=== PATIENT | male | born 1955 | race American Indian/Alaskan Native ===

== ENCOUNTER 2019-06-30 07:56 | Emergency (ER) | payer MEDICARE ==
--- NOTE | 2019-06-30 08:57 | Emergency Department Report ---
ED General Adult HPI - General Chief complaint: Dizziness Stated complaint: HBP Time Seen by Provider: 06/30/19 08:42 Source: patient Mode of arrival: Ambulatory Limitations: No Limitations - History of Present Illness Initial comments: This is a 63-year-old man that is concerned about his blood pressure. He states he is seen Dr. Flako Harvey recently and is compliant with his lisinopril. Despite this, he states that his blood pressures been adequately controlled. He occasionally feels "swimmy headed" and has a slight headache. He states he has had more severe headaches with uncontrolled hypertension before but these have been much milder. He denies vertigo. He denies difficulty with speech or walking. He denies any focal weakness or numbness. He denies chest pain or shortness of breath. -: Gradual, days(s), week(s) Location: head Quality: aching Consistency: intermittent, now resolved Improves with: none Worsens with: none Associated Symptoms: denies other symptoms Treatments Prior to Arrival: none - Related Data Previous Rx's Medication Instructions Recorded Last Taken Type Lisinopril/Hydrochlorothiazide 1 each PO DAILY #30 tablet 06/30/19 Unknown Rx [Zestoretic 10-12.5 mg Tablet] Allergies Allergy/AdvReac Type Severity Reaction Status Date / Time No Known Allergies Allergy Unverified 06/30/19 08:22 ED Review of Systems ROS: Stated complaint: HBP Other details as noted in HPI Constitutional: denies: chills, fever Eyes: denies: eye pain, eye discharge, vision change ENT: denies: ear pain, throat pain Respiratory: denies: cough, shortness of breath, wheezing Cardiovascular: denies: chest pain, palpitations Endocrine: no symptoms reported Gastrointestinal: denies: abdominal pain, nausea, diarrhea Genitourinary: denies: urgency, dysuria Musculoskeletal: denies: back pain, joint swelling, arthralgia Skin: denies: rash, lesions Neurological: as per HPI, headache. denies: weakness, numbness, paresthesias, confusion, abnormal gait, vertigo Psychiatric: denies: anxiety, depression Hematological/Lymphatic: denies: easy bleeding, easy bruising ED Past Medical Hx - Past Medical History Previous Medical History?: Yes Hx Hypertension: Yes Additional medical history: Gout - Surgical History Past Surgical History?: No - Social History Smoking Status: Never Smoker Substance Use Type: None - Medications Home Medications: Home Medications Medication Instructions Recorded Confirmed Last Taken Type Lisinopril/Hydrochlorothiazide 1 each PO DAILY #30 tablet 06/30/19 Unknown Rx [Zestoretic 10-12.5 mg Tablet] ED Physical Exam - General Limitations: No Limitations General appearance: alert, in no apparent distress - Head Head exam: Present: atraumatic, normocephalic - Eye Eye exam: Present: normal appearance, PERRL, EOMI. Absent: scleral icterus, conjunctival injection, nystagmus - ENT ENT exam: Present: mucous membranes moist - Neck Neck exam: Present: normal inspection. Absent: tenderness, meningismus - Respiratory Respiratory exam: Present: normal lung sounds bilaterally. Absent: respiratory distress - Cardiovascular Cardiovascular Exam: Present: regular rate, normal rhythm. Absent: systolic murmur, diastolic murmur, rubs, gallop - GI/Abdominal GI/Abdominal exam: Present: soft, normal bowel sounds. Absent: distended, tenderness, guarding, rebound, rigid - Rectal Rectal exam: Present: deferred - Extremities Exam Extremities exam: Present: normal inspection, normal capillary refill. Absent: calf tenderness - Back Exam Back exam: Present: normal inspection - Neurological Exam Neurological exam: Present: alert, oriented X3, CN II-XII intact, normal gait, other (NIH stroke score is 0). Absent: motor sensory deficit - Psychiatric Psychiatric exam: Present: normal affect, normal mood - Skin Skin exam: Present: warm, dry, intact, normal color. Absent: rash ED Course Vital Signs 06/30/19 06/30/19 06/30/19 08:21 08:53 09:01 Temperature 98.4 F Pulse Rate 53 L 55 L 48 L Respiratory 18 10 L 9 L Rate Blood Pressure 173/88 149/76 O2 Sat by Pulse 100 100 100 Oximetry 06/30/19 06/30/19 06/30/19 09:15 09:31 09:45 Temperature Pulse Rate 55 L 57 L 52 L Respiratory 10 L 9 L 8 L Rate Blood Pressure 149/76 149/76 123/83 O2 Sat by Pulse 99 100 Oximetry 06/30/19 06/30/19 06/30/19 10:01 10:15 10:36 Temperature Pulse Rate 54 L 56 L Respiratory 12 12 Rate Blood Pressure 123/83 170/65 170/65 O2 Sat by Pulse 99 99 76 L Oximetry - Reevaluation(s) Reevaluation #1: Patient is asymptomatic. He takes lisinopril 10 plan. I am going to place him on lisinopril/HCTZ 02/17.5. 06/30/19 11:02 06/30/19 11:05 Patient had no complaint of headache here ED Medical Decision Making - Lab Data Result diagrams: 06/30/19 09:13 06/30/19 09:13 Laboratory Results - last 24 hr 06/30/19 06/30/19 09:13 09:13 WBC 6.4 RBC 5.10 H Hgb 13.9 Hct 42.6 MCV 84 MCH 27 L MCHC 33 RDW 14.7 Plt Count 276 Lymph % (Auto) 22.5 Swain % (Auto) 5.5 Eos % (Auto) 2.1 Baso % (Auto) 0.6 Lymph # 1.5 Swain # 0.4 Eos # 0.1 Baso # 0.0 Seg Neutrophils % 69.3 Seg Neutrophils # 4.5 Sodium 139 Potassium 4.7 Chloride 104.4 Carbon Dioxide 22 Anion Gap 17 BUN 13 Creatinine 1.1 Estimated GFR > 60 BUN/Creatinine Ratio 12 Glucose 93 Calcium 9.1 Magnesium 2.10 Total Bilirubin 0.30 Direct Bilirubin < 0.2 AST 10 ALT 6 L Alkaline Phosphatase 65 Troponin T < 0.010 Total Protein 7.3 Albumin 3.8 L Albumin/Globulin Ratio 1.1 - EKG Data -: EKG Interpreted by Me Rate: normal - EKG Data Interpretation: nonspecific ST-T wave ronaldo, other (Atrial ectopy wandering pacemaker no acute ischemic changes) Critical care attestation.: If time is entered above; I have spent that time in minutes in the direct care of this critically ill patient, excluding procedure time. ED Disposition Clinical Impression: Poorly-controlled hypertension Cephalalgia Qualifiers: Headache type: unspecified Headache chronicity pattern: acute headache Intractability: not intractable Qualified Code(s): R51 - Headache Disposition: DC-01 TO HOME OR SELFCARE Is pt being admited?: No Does the pt Need Aspirin: No Condition: Stable Instructions: Hypertension (ED), Acute Headache (ED) Additional Instructions: Switch your lisinopril to the new medication. Follow-up with your primary care doctor. Return if you change or problem Prescriptions: Lisinopril/Hydrochlorothiazide [Zestoretic 10-12.5 mg Tablet] 1 each PO DAILY #30 tablet Referrals: Usual, primary care [Other] - 2-3 Days Time of Disposition: 11:03
[2019-06-30 10:27] LABS: Basophils % (Auto) 0.6 % (0.0-1.8); Eosinophils # (Auto) 0.1 K/mm3 (0.0-0.4); Eosinophils % (Auto) 2.1 % (0.0-4.3); Hematocrit 42.6 % (35.5-45.6); Hemoglobin 13.9 gm/dl (11.8-15.2); Lymphocytes # (Auto) 1.5 K/mm3 (1.2-5.4); Lymphocytes % (Auto) 22.5 % (13.4-35.0); Mean Corpuscular HGB Conc 33 % (32-34); Mean Corpuscular Volume 84 fl (84-94); Monocytes # (Auto) 0.4 K/mm3 (0.0-0.8); Monocytes % (Auto) 5.5 % (0.0-7.3); Platelet Count 276 K/mm3 (140-440); Red Cell Distribution Width 14.7 % (13.2-15.2)
[2019-06-30 10:40] VITALS: BP 170/65
[2019-06-30 10:48] LABS: Alanine Aminotransferase 6 units/L (7-56); Albumin 3.8 g/dL (3.9-5); BUN/Creatinine Ratio 12; Blood Urea Nitrogen 13 mg/dL (9-20); Calcium 9.1 mg/dL (8.4-10.2); Hemolysis Index 30
[2019-06-30 10:49] LABS: Bilirubin,Direct < 0.2 mg/dL (0-0.2)
== END 2019-06-30 19:00 | disposition home or self-care (01) ==
LOC: ED 07:56
DX: I10 Essential (primary) hypertension (principal); R51 Headache; M10.9 Gout, unspecified; Z79.899 Other long term (current) drug therapy
CPT/HCPCS: 36415; 80048; 80076; 83735; 84484; 85025; 93005; 93010

== ENCOUNTER 2020-10-07 04:11 | Emergency (ER) | payer MEDICARE ==
[2020-10-07 05:14] VITALS: BP 203/87
[2020-10-07] MEDS ORDERED: cloNIDine 0.2 MG TAB PO ONE (06:51)
== END 2020-10-07 07:21 | disposition left against medical advice (07) ==
LOC: ED 04:11
DX: I10 Essential (primary) hypertension (principal); Z53.21 Procedure and treatment not carried out due to patient leaving prior to being seen by health care provider